=== PATIENT | female | born 1950 | race Caucasian/White ===

== ENCOUNTER 2017-04-13 09:05 | Day surgery (SDC) | payer OTHER ==
[~2017-04-13] VITALS: Ht 152.4 cm; Wt 77.1 kg
[2017-04-13 09:35] LABS: BASOPHILS % 0.7 % (0.0-2.0); EOSINOPHILS % 2.9 % (0.0-5.0); HEMOGLOBIN. 12.6 g/dL (12.0-16.0); LYMPHOCYTES % 30.8 % (20.0-50.0); MEAN CORPUSCULAR VOLUME 84.9 fL (81.0-99.0); MEAN PLATELET VOLUME 7.3 fl (7.4-10.4); MONOCYTES % 8.5 % (2.0-8.0); NEUTROPHILS % 57.1 % (40.0-76.0); PLATELET 282 x1000/uL (130-400); RED BLOOD CELL COUNT 4.48 mill/uL (4.2-5.4); RED CELL DISTRIBUTION WIDTH 15.5 % (11.6-14.6)
[2017-04-13] MEDS ORDERED: PROP80CA2 PO (09:36)
[2017-04-13] MEDS ORDERED: OMEG1CAP17 PO (09:36)
[2017-04-13 09:41] LABS: CHLORIDE 107 mEq/L (98-107)
[2017-04-13 09:48] LABS: CARBON DIOXIDE 27 mEq/L (21-32)
[2017-04-13] MEDS ORDERED: LIDOCAINE HCL 1% 20ML VIAL (Pyxis) INJ ONE (09:52)
[2017-04-13] MEDS ORDERED: IOHEXOL-300 100 ML BOTTLE ONE (10:01)
[2017-04-13] MEDS ORDERED: MIDAZOLAM HCL 2 MG/2 ML VIAL ONE (10:02)
[2017-04-13] MEDS ORDERED: FENTANYL CITRATE/PF 50MCG/ML 2ML VIAL ONE (10:02)
[2017-04-13] MEDS ORDERED: HEPARIN SODIUM 1,000 UNIT/1ML VIAL IV ONE (10:05)
[2017-04-13] MEDS ORDERED: ONDANSETRON HCL 4MG/2ML VIAL IV PRN (11:00)
[2017-04-13] MEDS ORDERED: MORPHINE SULFATE 2 MG/ML CPJ (NOT FOR IM USE) IV PRN (11:00)
[2017-04-13] MEDS ORDERED: ACETAMINOPHEN 325MG TABLET PO PRN (11:00)
== END 2017-04-13 15:00 | disposition home or self-care (01) ==
LOC: CCL 09:05
PROVIDERS: ATTEND Internal Medicine Cardiovascular Disease
DX: R94.39 Abnormal result of other cardiovascular function study (principal)
CPT/HCPCS: 36415; 80048; 85025; 93458; 99152; C1769; C1887; C1893; J1644; J2250; J3010; J3490; Q9967